=== PATIENT | male | born 1995 | race Caucasian/White ===

== ENCOUNTER → 2018-02-18 | Outpatient (CLI) | payer OTHER ==
--- NOTE | 2018-02-18 18:59 | RADIOLOGY IMAGING REPORT ---
FACILITY: [facility] - [place] PATIENT NAME: Shahram Dugan : 1995 MR: [id number] V: [id number] EXAM DATE: ORDERING PHYSICIAN: SANDY WILLIAM TECHNOLOGIST: Location: [facility] [place] Patient: Shahram Dugan : 1995 Visit/Account:[id number] Date of Sevice: 02/18/2018 CT Head without contrast Indication: Headache. Comparison: None available Technique: Axial CT images were obtained through the brain from the skull base to the vertex without administration of IV contrast. Reformatted coronal and sagittal images were also obtained. One of the following dose optimization techniques was utilized in the performance of this exam: autom ated exposure control; adjustment of the mA and/or kV according to the patient's size; or use of an i terative reconstruction technique. Specific details can be referenced in the facility's radiology CT exam operational policy. Findings: No evidence of mass, mass effect, or midline shift. No acute intracranial hemorrhage or acute territorial infarction. No extra-axial fluid collection or hydrocephalus. No abnormal density. Collins/white matter differentiat ion appears normal. The bony structures show no fractures or lesions. Left maxillary sinus does show small cyst/polyp. The remaining sinuses and mastoids visualized are cl ear. IMPRESSION: 1. No acute intracranial abnormality. Report Dictated By: Gumaro Sexton at 02/18/2018 6:51 PM Report E-Signed By: Gumaro Sexton at 02/18/2018 6:56 PM WSN:[id number]
== END ==
LOC: CT 18:00
PROVIDERS: ATTEND Nurse Practitioner Family
DX: J32.0 Chronic maxillary sinusitis (principal)
CPT/HCPCS: 70450

== ENCOUNTER 2018-07-26 23:10 | Emergency (ER) | payer OTHER ==
--- NOTE | 2018-07-26 23:25 | ER Report ---
History and Physical Time Seen By MD: 23:12 HPI/ROS CHIEF COMPLAINT: Finger laceration HISTORY OF PRESENT ILLNESS: 22-year-old male presents ambulatory to the ER with a laceration over his right index finger PIP knuckle. Patient states he slammed his hand into a mirror sustaining a laceration there. Motion. There is moderat e bleeding. Patient states his last tetanus shots up-to-date. Allergies: Coded Allergies: No Known Drug Allergies (Unverified , 07/26/18) Reviewed Nurses Notes: Yes Old Medical Records Reviewed: Yes Constitutional Vital Sign - Last 24 Hours 07/26/18 07/26/18 07/26/18 07/26/18 23:15 23:16 23:25 23:30 Temp 98.0 Pulse 83 78 Resp 16 B/P (MAP) 137/94 137/94 (108) 125/79 (94) Pulse Ox 95 95 O2 Delivery Room Air 07/26/18 07/26/18 07/27/18 23:40 23:55 00:00 Pulse ? B/P (MAP) 118/71 (87) Physical Exam General appearance: Alert no distress. Respiratory: Chest is non tender, lungs are clear to auscultation. Cardiac: Regular rate and rhythm Extremities: Examination of the right hand reveals a neurovascularly intact hand. Over the dorsal aspect of the PIP knuckle. There is an approximately 1.5 centimeter laceration. All tendon function appears intact. DIFFERENTIAL DIAGNOSIS: After history and physical exam differential diagnosis was considered for foreign body, finger laceration, tendon laceration, joint penetration. Medical Decision Making ED Course/Re-evaluation ED Course Patient was minute to an examination room. H&P was done. The differential d iagnoses was considered. On clinical examination. Patient has a laceration over his right index finger. The lacerations repaired as noted below. Wound care is discussed, suture removal will be in 10 days. Procedure: Laceration repair. Verbal consent was obtained from the patient. The 1.5 cm laceration on the dorsal PIP knuckle right index finger was anesthetized in the usual fashion. The wound was scrubbed, draped and explored to its base with a gloved finger. There were no deep structures involved. No tendon injury was identified. The wound was repaired with 5-0 Prolene 3 sutures. The wound repair was simple. The pro cedure was performed by myself. Wound care was discussed, suture removal will be in 10 days. Decision to Disposition Date: Jul 26, 2018 Decision to Disposition Time: 23:24 Depart Departure Latest Vital Signs Vital Signs Date Time Temp Pulse Resp B/P (MAP) Pulse Ox O2 Delivery O2 Flow Rate FiO2 07/27/18 00:00 118/71 (87) 07/26/18 23:55 ??? 07/26/18 23:25 95 07/26/18 23:15 98.0 16 Room Air Impression: Primary Impression: Laceration of right index finger Condition: Improved Disposition: HOME OR SELF-CARE Patient Instructions: Finger Laceration (ED) Additional Instructions: Perform daily wound care, gently cleanse the area with mild soap such as baby shampoo or peroxide, cover with a thin layer of anabolic ointment and a Band-Aid Have your stitches removed in 10 days. You may go to student health or urgent care Problem Qualifiers Primary Impression: Laceration of right index finger Encounter type: initial encounter Damage to nail status: without damage Foreign body presence: without foreign body Qualified Codes: S61.210A - Laceration without foreign body of right index finger without damage to nail, initial encounter JAMES ALEJO DO Jul 26, 2018 23:25
[2018-07-27] VITALS: BP 118/71
== END 2018-07-27 00:07 | disposition home or self-care (01) ==
LOC: ER 23:37
DX: S61.210A Laceration without foreign body of right index finger without damage to nail, initial encounter (principal)
CPT/HCPCS: 99283